=== PATIENT | male | born 1990 | race Caucasian/White ===

== ENCOUNTER 2018-03-01 21:04 | Emergency (ER) | payer SELFPAY ==
[2018-03-01] MEDS ORDERED: NORMAL SALINE 1000 ML 1,000 ML IV ONE ×2 (21:06→23:20)
--- NOTE | 2018-03-01 21:07 | ER Document Report ---
Addendum entered and electronically signed by NGUYỄN FREEMAN DO 03/02/18 09:06 : Course - Vital Signs Vital signs: Temp Pulse Resp BP Pulse Ox 98.4 F 21 H 109/73 98 03/01/18 22:15 03/02/18 06:01 03/02/18 06:01 03/02/18 06:01 - Laboratory Result Diagrams: 03/01/18 21:10 03/01/18 21:10 Laboratory results interpreted by me: 03/01/18 03/01/18 03/01/18 21:10 21:10 21:55 WBC 12.6 H Seg Neutrophils % 79.6 H Lymphocytes % 11.0 L Absolute Neutrophils 10.1 H Sodium 145.6 H Direct Bilirubin 0.8 H Urine Protein 30 H Urine Urobilinogen 2.0 H Salicylates < 1.0 L Acetaminophen < 10 L Addendum entered and electronically signed by OMER MARTIN LPC 03/02/18 08: 46: Discharge - Discharge Clinical Impression: Suicide attempt Overdose Qualifiers: Encounter type: initial encounter Injury intent: intentional self-harm Qualified Code(s): T50.902A - Poisoning by unspecified drugs, medicaments and biological substances, intentional self-harm, initial encounter Anticholinergic drug overdose Qualifiers: Encounter type: initial encounter Injury intent: intentional self-harm Qualified Code(s): T44.3X2A - Poisoning by other parasympatholytics [ anticholinergics and antimuscarinics] and spasmolytics, intentional self-harm, initial encounter Condition: Stable Disposition: HOME, SELF-CARE Instructions: Overdose ([facility]), Overdose / Ingestion ([facility]), Suicidal Ideation ( [facility]) Additional Instructions: OVERDOSE: You have taken more medication than you should have. After your evaluation and care, it is felt that your overdose is not likely to be harmful or of any significant consequences to you and you are being discharged. In the future, you should be careful not to take more medications than what is prescribed for you. Although your overdose does not seem to be of any danger to you at this time, if you develop any unusual or unexpected symptoms after your discharge, you should return to the Emergency Department immediately for re-evaluation. DEPRESSION: Your evaluation reveals that you have mental depression. While symptoms may be vague, they often include disturbance of sleep, fatigue, loss of appetite , and general loss of interest in life. While depression may be a side effect of drugs, or a reaction to a major change in your life, many cases have no known cause. If depression is acute, and related to a major loss in your life, you can expect it to clear completely with time. If you have been depressed a long time , are prone to repeated bouts of depression or low mood, or have been thinking of suicide, get help. Depression can be treated with anti-depressant medication and counselling. Long-term depression will often take a few weeks to clear, even with appropriate medication. Follow-up care is important. SUICIDAL IDEATION: Suicidal ideation is a common medical term for thoughts about suicide, which may be as detailed as a formulated plan, without the suicidal act itself. Although most people who undergo suicidal ideation do not commit suicide, some go on to make suicide attempts. The range of suicidal ideation varies greatly from fleeting to detailed planning, role playing, and unsuccessful attempts. While thoughts about suicide are common, most people do not carry out serious actions to commit suicide. Based upon your evaluation and discussion with you, we do not believe you are currently at risk to act upon your thoughts of suicide. You have agreed to return to the Emergency Department, at any time , if you feel inclined to act upon your suicidal thoughts. FOLLOW-UP CARE: You have been provided the mental health outpatient resource sheet with [facility] Mobile Crisis Management (MCM) contact information for crisis, talk therapy and linkage to other supports. You have been encouraged to utilize local resources for therapy and/or medication management if current stress continues to impair everyday functioning. You are being discharged to mother whom you reside with. Both of you have agreed mother will lock up all medications in the home and if you need anything over-the- counter you will have to ask for it If you experience worsening or a significant change in your symptoms, notify the physician immediately, utilize mobile crisis or return to the Emergency Department at any time for re- evaluation. Referrals: [facility] Team [Outside] - Follow up as needed Original Note: ED Psych Disorder / Suicide <OMER MARTIN - Last Filed: 03/02/18 08:42> <NGUYỄN FREEMAN - Last Filed: 03/02/18 09:06> <ANTWAN LAGOS - Last Filed: 03/02/18 09:11> - General Mode of Arrival: Stretcher Information source: Emergency Med Personnel TRAVEL OUTSIDE OF THE U.S. IN LAST 30 DAYS: No - HPI Patient complains to provider of: Overdose Onset: Just prior to arrival Onset was: Sudden Quality of pain: No pain Suicide Risk Factors: Male Suicide Attempt Method: Overdose <BENNETT CARDENAS - Last Filed: 03/02/18 14:12> - General Stated Complaint: POSSIBLE OVERDOSE Time Seen by Provider: 03/01/18 21:05 - HPI Notes: Patient is a 27-year-old male brought to the emergency room by EMS after apparent overdose, EMS reports that patient had an argument with his mother at which point time he grabbed a bottle of Aleve which had approximately 10-15 pills in it which he ingested all at once, mother denies any knowledge of any other substance ingestion, however patient is quite altered on arrival, patient does have a history of substance abuse prior but has been clean for 2 years, he previously lived in [place] and his mother and sister brought him to [place] in an effort to get him clean, over the past week he has been hanging out with a new female friend who mother is concerned may be a bad influence on him and may have gotten him to start using drugs and/or alcohol again (BENNETT CARDENAS) - Related Data Allergies/Adverse Reactions: ketamine Allergy (Verified 03/23/16 13:07) Past Medical History - General Information source: Patient, Parent, Relative, Emergency Med Personnel - Social History Smoking Status: Unknown if Ever Smoked Family History: Reviewed & Not Pertinent - Immunizations Hx Diphtheria, Pertussis, Tetanus Vaccination: No <BENNETT CARDENAS - Last Filed: 03/02/18 14:12> Review of Systems - Review of Systems -: Yes ROS unobtainable due to patient's medical condition Neurological/Psychological: See HPI <BENNETT CARDENAS - Last Filed: 03/02/18 14:12> Physical Exam - Vital signs Interpretation: Tachycardic - General General appearance: Other - Patient appears intoxicated In distress: Mild - HEENT Head: Normocephalic, Atraumatic Eyes: Normal Conjunctiva: Normal Mucous membranes: Dry Pharynx: Normal Neck: Normal - Respiratory Respiratory status: No respiratory distress Chest status: Nontender Breath sounds: Normal Chest palpation: Normal - Cardiovascular Rhythm: Regular, Tachycardia - Abdominal Inspection: Normal Distension: No distension Bowel sounds: Normal Tenderness: Nontender Organomegaly: No organomegaly - Back Back: Normal, Nontender - Extremities General upper extremity: Normal inspection, Nontender, Normal color, Normal ROM , Normal temperature General lower extremity: Normal inspection, Nontender, Normal color, Normal ROM , Normal temperature, Normal weight bearing. No: Anya's sign - Neurological Cognition: Confused Hurst Coma Scale Eye Opening: Spontaneous Hurst Coma Scale Verbal: Incomprehensible Melissa Coma Scale Motor: Withdraws to Pain Hurst Coma Scale Total: 10 - Psychological Associated symptoms: Other - Bizarre affect - Skin Skin Temperature: Warm Skin Moisture: Dry Skin Color: Normal <BENNETT CARDENAS - Last Filed: 03/02/18 14:12> - Vital signs Vitals: Resp Pulse Ox 18 99 03/01/18 21:06 03/01/18 21:06 Course <OMER MARTIN - Last Filed: 03/02/18 08:42> - Laboratory Result Diagrams: 03/01/18 21:10 03/01/18 21:10 <NGUYỄN FREEMAN - Last Filed: 03/02/18 09:06> - Laboratory Result Diagrams: 03/01/18 21:10 03/01/18 21:10 <ANTWAN LAGOS - Last Filed: 03/02/18 09:11> - Laboratory Result Diagrams: 03/01/18 21:10 03/01/18 21:10 - Diagnostic Test Radiology reviewed: Image reviewed, Reports reviewed - EKG Interpretation by Nc EKG shows normal: Sinus rhythm Rate: Tachycardia <BENNETT CARDENAS - Last Filed: 03/02/18 14:12> - Re-evaluation Re-evalutation: 03/02/18 03:59 Patient reevaluated. He is resting comfortably, alert, awake. He states that he is tired. Current vital signs are heart rate of 91, blood pressure 127/82, he is satting 98% on room air. 03/02/18 04:01 03/02/18 06:29 Patient reevaluated again. He is still resting comfortably. Vital signs within normal limits. No events since sign out. Patient alert, awake. Patient will be removed from trauma [address] 4[address] Patient cleared for psychiatric evaluation. (NGUYỄN FREEMAN) 03/01/18 23:19 Patient more awake and alert, his heart rate is in the 140 range, he now admits that he had an argument with his mother and therefore overdosed on approximately 24 Benadryl, this does seem to fit his symptoms of anticholinergic toxidrome as well as he is tachycardic, dry, and delirious on arrival 03/01/18 23:41 Patient was discussed with [facility] control who recommends patient receive sodium bicarb, 2 Amps, then repeat the EKG to ensure that the QRS is less than 120 03/02/18 00:08 Patient resting comfortably, remains in restraints for safety 03/02/18 00:20 24-hour involuntary commitment paperwork is been completed and placed on the chart Patient will remain in the emergency room for continued monitoring until he can be seen and evaluated by mental health services for further evaluation and treatment 03/02/18 00:53 30 EKG after receiving 2 Amps of bicarb shows a QRS of 111, patient continues to improve, is much more awake alert and cooperative (BENNETT CARDENAS) - Vital Signs Vital signs: Temp Pulse Resp BP Pulse Ox 98.1 F 90 21 H 117/67 99 03/02/18 09:08 03/02/18 09:08 03/02/18 06:01 03/02/18 09:08 03/02/18 09:08 - Laboratory Laboratory results interpreted by me: 03/01/18 03/01/18 03/01/18 21:10 21:10 21:55 WBC 12.6 H Seg Neutrophils % 79.6 H Lymphocytes % 11.0 L Absolute Neutrophils 10.1 H Sodium 145.6 H Direct Bilirubin 0.8 H Urine Protein 30 H Urine Urobilinogen 2.0 H Salicylates < 1.0 L Acetaminophen < 10 L - EKG Interpretation by Me Additional EKG results interpreted by me: 03/02/18 00:09 Initial EKG with a QRS of 119, repeat EKG with a QRS of 125, both sinus tachycardia with no acute findings otherwise (BENNETT CARDENAS) Critical Care Note <OMER MARTIN - Last Filed: 03/02/18 08:42> <NGUYỄN FREEMAN - Last Filed: 03/02/18 09:06> <ANTWAN LAGOS - Last Filed: 03/02/18 09:11> - Critical Care Note Total time excluding time spent on procedures (mins): 60 <BENNETT CARDENAS - Last Filed: 03/02/18 14:12> - Critical Care Note Comments: Patient arrived via EMS after apparent overdose, tachycardic, with anticholinergic toxidrome (BENNETT CARDENAS) Discharge <OMER MARTIN - Last Filed: 03/02/18 08:42> <NGUYỄN FREEMAN - Last Filed: 03/02/18 09:06> <ANTWAN LAGOS - Last Filed: 03/02/18 09:11> <BENNETT CARDENAS - Last Filed: 03/02/18 14:12> - Discharge Clinical Impression: Suicide attempt Overdose Qualifiers: Encounter type: initial encounter Injury intent: intentional self-harm Qualified Code(s): T50.902A - Poisoning by unspecified drugs, medicaments and biological substances, intentional self-harm, initial encounter Anticholinergic drug overdose Qualifiers: Encounter type: initial encounter Injury intent: intentional self-harm Qualified Code(s): T44.3X2A - Poisoning by other parasympatholytics [ anticholinergics and antimuscarinics] and spasmolytics, intentional self-harm, initial encounter Condition: Stable Disposition: HOME, SELF-CARE Instructions: Overdose ([facility]), Overdose / Ingestion ([facility]), Suicidal Ideation ( [facility]) Additional Instructions: OVERDOSE: You have taken more medication than you should have. After your evaluation and care, it is felt that your overdose is not likely to be harmful or of any significant consequences to you and you are being discharged. In the future, you should be careful not to take more medications than what is prescribed for you. Although your overdose does not seem to be of any danger to you at this time, if you develop any unusual or unexpected symptoms after your discharge, you should return to the Emergency Department immediately for re-evaluation. DEPRESSION: Your evaluation reveals that you have mental depression. While symptoms may be vague, they often include disturbance of sleep, fatigue, loss of appetite , and general loss of interest in life. While depression may be a side effect of drugs, or a reaction to a major change in your life, many cases have no known cause. If depression is acute, and related to a major loss in your life, you can expect it to clear completely with time. If you have been depressed a long time , are prone to repeated bouts of depression or low mood, or have been thinking of suicide, get help. Depression can be treated with anti-depressant medication and counselling. Long-term depression will often take a few weeks to clear, even with appropriate medication. Follow-up care is important. SUICIDAL IDEATION: Suicidal ideation is a common medical term for thoughts about suicide, which may be as detailed as a formulated plan, without the suicidal act itself. Although most people who undergo suicidal ideation do not commit suicide, some go on to make suicide attempts. The range of suicidal ideation varies greatly from fleeting to detailed planning, role playing, and unsuccessful attempts. While thoughts about suicide are common, most people do not carry out serious actions to commit suicide. Based upon your evaluation and discussion with you, we do not believe you are currently at risk to act upon your thoughts of suicide. You have agreed to return to the Emergency Department, at any time , if you feel inclined to act upon your suicidal thoughts. FOLLOW-UP CARE: You have been provided the mental health outpatient resource sheet with [facility] Mobile Crisis Management (MCM) contact information for crisis, talk therapy and linkage to other supports. You have been encouraged to utilize local resources for therapy and/or medication management if current stress continues to impair everyday functioning. You are being discharged to mother whom you reside with. Both of you have agreed mother will lock up all medications in the home and if you need anything over-the- counter you will have to ask for it If you experience worsening or a significant change in your symptoms, notify the physician immediately, utilize mobile crisis or return to the Emergency Department at any time for re- evaluation. Referrals: [facility] [Outside] - Follow up as needed
[2018-03-01 21:26] LABS: ABSOLUTE BASOPHILS # (AUTO) 0.1 10^3/uL (0.0-0.2); ABSOLUTE EOSINOPHILS # (AUTO) 0.1 10^3/uL (0.0-0.6); ABSOLUTE LYMPHOCYTES (AUTO) 1.4 10^3/uL (0.5-4.7); ABSOLUTE MONOCYTES (AUTO) 1.1 10^3/uL (0.1-1.4); ABSOLUTE NEUT (AUTO) 10.1 10^3/uL (1.7-8.2); BASOPHILS % (AUTO) 0.4 % (0-2); EOSINOPHILS % (AUTO) 0.6 % (0-6); HEMATOCRIT 45.9 % (37.9-51.0); HEMOGLOBIN 15.8 g/dL (13.5-17.0); MEAN CORPUSCULAR HEMOGLOBIN 31.9 pg (27.0-33.4); MEAN CORPUSCULAR HGB CONC 34.5 g/dL (32.0-36.0); MEAN CORPUSCULAR VOLUME 93 fl (80-97); MONOCYTES % (AUTO) 8.4 % (3-13); PLATELET COUNT 240 10^3/uL (150-450); RED BLOOD COUNT 4.95 10^6/uL (4.35-5.55); RED CELL DISTRIBUTION WIDTH 12.5 % (11.5-14.0); SEGMENTED NEUTROPHILS % (AUTO) 79.6 % (42-78); TOTAL CELLS COUNTED % (AUTO) 100 %; WHITE BLOOD COUNT 12.6 10^3/uL (4.0-10.5)
[2018-03-01 21:43] LABS: ALANINE AMINOTRANSFERASE 47 U/L (21-72); ALBUMIN 4.2 g/dL (3.5-5.0); ALKALINE PHOSPHATASE 78 U/L (38-126); ANION GAP 14 (5-19); ASPARTATE AMINO TRANSFERASE 32 U/L (17-59); BILIRUBIN,DIRECT 0.8 mg/dL (0.0-0.4); BILIRUBIN,TOTAL 0.9 mg/dL (0.2-1.3); BLOOD UREA NITROGEN 12 mg/dL (7-20); CALCIUM 9.7 mg/dL (8.4-10.2); CARBON DIOXIDE 27 mmol/L (22-30); CHLORIDE 105 mmol/L (98-107); GLUCOSE 77 mg/dL (75-110); SODIUM 145.6 mmol/L (137-145); TOTAL PROTEIN 7.3 g/dL (6.3-8.2)
[2018-03-01 21:47] LABS: ACETAMINOPHEN < 10 ug/mL (10-30); ALCOHOL < 10 mg/dL (NONE DETECTED); SALICYLATE < 1.0 mg/dL (2.0-20.0)
[2018-03-01 22:31] LABS: APPEARANCE,URINE SLIGHTLY-CLOUDY; BILIRUBIN,URINE NEGATIVE (NEGATIVE); COLOR,URINE YELLOW; GLUCOSE, URINE NEGATIVE (NEGATIVE); KETONES,URINE NEGATIVE (NEGATIVE); LEUKOCYTE ESTERASE,URINE NEGATIVE (NEGATIVE); NITRITE,URINE NEGATIVE (NEGATIVE); PROTEIN,URINE 30 mg/dL (NEGATIVE)
--- NOTE | 2018-03-01 23:37 | RADIOLOGY REPORT (SQ) ---
EXAM DESCRIPTION: CT HEAD WITHOUT IV CONTRAST COMPLETED DATE/TME: 03/01/2018 21:05 CLINICAL HISTORY: 27 years, Male, ams COMPARISON: None. TECHNIQUE: 200 Images stored on PACS. All CT scanners at this facility use dose modulation, iterative reconstruction, and/or weight based dosing when appropriate to reduce radiation dose to as low as reasonably achievable (ALARA). [facility]: Dose Right [facility]: CareDose [facility]: Dose Right [facility]: Teradose 4D [facility]: [employer] LIMITATIONS: None. FINDINGS: The globes are intact. The paranasal sinuses and mastoid air cells are unremarkable. No displaced or depressed skull fracture. No intra or extra-axial hemorrhage. CT is limited for evaluation of acute infarct. No CT evidence for large or territorial acute infarct. No mass or midline shift. IMPRESSION: Negative exam TECHNICAL DOCUMENTATION: Quality ID # [id number]: Final reports with documentation of one or more dose reduction techniques (e.g., Automated exposure control, adjustment of the mA and/or kV according to patient size, use of iterative reconstruction technique) 2010 [employer]- All Rights Reserved
[2018-03-01] MEDS ORDERED: SODIUM BICARBONATE 8.4% INJ 50 MEQ/50 ML DISP.SYRIN IV ONE (23:40)
[2018-03-02] MEDS ORDERED: SODIUM BICARBONATE 4.2% INJ 5 MEQ/10 ML DISP.SYRIN IV ONE (00:25)
[2018-03-02 01:02] LABS: URINE AMPHETAMINES SCREEN NEGATIVE; URINE BARBITURATES SCREEN NEGATIVE; URINE BENZODIAZEPINES SCREEN NEGATIVE; URINE COCAINE SCREEN NEGATIVE; URINE MARIJUANA (THC) SCREEN NEGATIVE; URINE METHADONE SCREEN NEGATIVE; URINE PHENCYCLIDINE SCREEN NEGATIVE
--- NOTE | 2018-03-02 07:55 | EKG REPORT ---
SEVERITY:- ABNORMAL ECG - SINUS RHYTHM LEFT POSTERIOR FASCICULAR BLOCK PROLONGED QT INTERVAL : Confirmed by: Jamin Ramirez MD 02-Mar-2018 07:54:39
--- NOTE | 2018-03-02 07:55 | EKG REPORT ---
SEVERITY:- ABNORMAL ECG - SINUS TACHYCARDIA LEFT POSTERIOR FASCICULAR BLOCK BORDERLINE PROLONGED QT INTERVAL : Confirmed by: Jamin Ramirez MD 02-Mar-2018 07:54:49
--- NOTE | 2018-03-02 07:55 | EKG REPORT ---
SEVERITY:- ABNORMAL ECG - SINUS TACHYCARDIA LEFT POSTERIOR FASCICULAR BLOCK BORDERLINE PROLONGED QT INTERVAL : Confirmed by: Jamin Ramirez MD 02-Mar-2018 07:55:05
--- NOTE | 2018-03-02 08:41 | PSYCHOLOGICAL NOTE ---
Psych Note - Psych Note Date seen by psych provider: 03/02/18 Time seen by psych provider: 07:15 - Chart review at 0718. Evaluation from 5133- 1120 Psych Note: Reason for Consult: 24 Hour IVC Petition, OD Contact Permissions: Mother Shae, Neighbor Bel both at bedside Patient is a 27 year old male who presented to the ED via EMS last evening for an intentional OD of Aleve after and argument with mother. He stated he was in the ED for "a bunch of stupid crap really, I was hanging out with a female friend for a couple hours like I normally do but my mother thought we were messing around so she threw my belongings outside, I got mad and took those things and then don't remember much else." He admitted he took "3 Aleve and 14- 15 Benadryl, this was the first time for anything like this, it will be the last time, it is not worth it, I will never do this again it is so bad." He denied current SI and commented "hell no, I'm done with that, stupid experiment. " He denied previous MH history to include both outpatient and inpatient. He stated he is often "shaky and think I have a little anxiety." Patient was alert and oriented to person, place, time and situation. Mood was euthymic with congruent affect. He denied current SI/HI, history of attempts ( he and mother denied), admitted to taking Aleve and Benadryl but it was stupid and said he would not do that again. He did not appear to be responding to internal stimuli as evidenced by fair eye contact, answering questions appropriately when addressed, carrying on dialogue conversation, staying on topic and being engaged in evaluation. Thought processes were linear and organized. Conversational speech was within normal limits for rate, tone and prosody. Intellectual abilities are estimated to be average. Insight, judgment and impulse control were fair as evidenced by being engaged in evaluation, processing crisis and being honest about his actions. 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 She reported 03/17/18 will be 2 years of sobriety for patient. She acknowledged patient takes Benadryl for sleep "so is not certain taking the medications was entirely on purpose to harm self." She denied a family history of MH. She confirmed no MH history with patient to include inpatient hospitalizations. She reported she felt comfortable with patient going home, she would observe/ monitor more closely the next few days and she would lock up all medications in the home (patient won't have access and would need to ask for anything needed to include Benadryl that he uses for sleep). Diagnosis: 308.3 (F43.0) Acute Stress Disorder Impression/Plan: Patient is cleared from acute psychiatric services. Recommendation to rescind 24 Hour IVC Petition. He denied current SI/HI, both he and mother reported no history of previous attempts or any MH with exception of SA (Suboxone, will be sober 2 years on 01/15/18) and no observed psychosis. Mother and patient have agreed mother will lock up all medications in the home and he will have to ask for anything he might need that is O-T-C. Patient will go home with mother, who he resides with. Mother and neighbor present (natural supports). Patient and mother provided psychoeducation regarding [facility] for crisis, talk therapy and linkage to other supports. Provided outpatient resource sheet to patient with [facility] number highlighted. Encouraged therapy or medication management at local agency if stress impairs everyday functioning. Consulted with Dr. Rosenthal regarding the management and care of patient. ED Physician in agreement with recommendations.
[2018-03-02 09:10] VITALS: BP 117/67
--- NOTE | 2018-03-02 09:17 | ER Document Report ---
Doctor's Note Notes: 03/02/18 09:16 Rounds: Chart reviewed and patient interviewed. Patient being evaluated for a benign overdose. Argument with mother. Depression. Vital signs are all normal. Lab studies were all normal with exception of very minimally elevated WBC. No other signs of any infection anywhere. Patient appears to be medically stable for transfer or discharge. Gui Solomon MD
== END 2018-03-02 09:24 | disposition home or self-care (01) ==
LOC: ER 21:04
DX: T45.0X2A Poisoning by antiallergic and antiemetic drugs, intentional self-harm, initial encounter (principal); T44.3X2A Poisoning by other parasympatholytics [anticholinergics and antimuscarinics] and spasmolytics, intentional self-harm, initial encounter; Y92.009 Unspecified place in unspecified non-institutional (private) residence as the place of occurrence of the external cause; R00.0 Tachycardia, unspecified; D72.829 Elevated white blood cell count, unspecified; F43.0 Acute stress reaction; Z88.8 Allergy status to other drugs, medicaments and biological substances; Z78.1 Physical restraint status
CPT/HCPCS: 93005 ×2; 99285; 96360; 96361; 36415; 80307 ×4; 82550; 85025; 80053; 81001; 70450; 93010 ×2; J3490; J7030

== ENCOUNTER 2018-07-18 13:53 | Emergency (ER) | payer SELFPAY ==
--- NOTE | 2018-07-18 14:19 | ER Document Report ---
ED Medical Screen (RME) - General Chief Complaint: Syncope Stated Complaint: POSSIBLE SEIZURE Time Seen by Provider: 07/18/18 14:13 Mode of Arrival: Ambulatory Information source: Patient Notes: Patient is a 27-year-old male who presents to the emergency department after suffering a seizure yesterday while at work. Patient reports he has never had a seizure in the past. States he had a seizure while at work, states someone caught him and guided him to the ground. States EMS was called, checked his vitals and patient declined transport. Patient now states he is continuing to have dizziness, weakness and feels like he may pass out. He states that he smokes weed occasionally, denies any recent history of IV drug use although he does state he used IV drugs last to 3 years ago. Patient denies any recent fevers, nausea, vomiting or diarrhea. Exam: Patient alert, oriented, calm and cooperative. Equal childcare provider strength bilaterally. I have greeted and performed a rapid initial assessment of this patient. A comprehensive ED assessment and evaluation of the patient, analysis of test results and completion of the medical decision making process will be conducted by additional ED providers. Dictation of this chart was performed using voice recognition software; therefore, there may be some unintended grammatical errors. TRAVEL OUTSIDE OF THE [place] IN LAST 30 DAYS: No - Related Data Allergies/Adverse Reactions: codeine Allergy (Verified 07/18/18 14:12) Past Medical History Renal/ Medical History: Denies: Hx Peritoneal Dialysis - Immunizations Hx Diphtheria, Pertussis, Tetanus Vaccination: No Physical Exam - Vital signs Vitals: Temp Pulse Resp BP Pulse Ox 98.1 F 88 18 105/68 98 07/18/18 14:03 07/18/18 14:03 07/18/18 14:03 07/18/18 14:03 07/18/18 14:03 Course - Vital Signs Vital signs: Temp Pulse Resp BP Pulse Ox 98.1 F 88 18 105/68 98 07/18/18 14:03 07/18/18 14:03 07/18/18 14:03 07/18/18 14:03 07/18/18 14:03
[2018-07-18 15:08] LABS: AMORPHOUS SEDIMENT,URINE TRACE /HPF; APPEARANCE,URINE CLOUDY; BILIRUBIN,URINE NEGATIVE (NEGATIVE); COLOR,URINE YELLOW; GLUCOSE, URINE NEGATIVE (NEGATIVE); KETONES,URINE NEGATIVE (NEGATIVE); LEUKOCYTE ESTERASE,URINE NEGATIVE (NEGATIVE); NITRITE,URINE NEGATIVE (NEGATIVE); PROTEIN,URINE 30 mg/dL (NEGATIVE); URINE SPECIFIC GRAVITY 1.021; UROBILINOGEN,URINE NEGATIVE mg/dL (<2.0)
[2018-07-18 15:08] LABS: ABSOLUTE BASOPHILS # (AUTO) 0.1 10^3/uL (0.0-0.2); ABSOLUTE EOSINOPHILS # (AUTO) 0.1 10^3/uL (0.0-0.6); ABSOLUTE LYMPHOCYTES (AUTO) 2.1 10^3/uL (0.5-4.7); ABSOLUTE MONOCYTES (AUTO) 0.6 10^3/uL (0.1-1.4); ABSOLUTE NEUT (AUTO) 4.8 10^3/uL (1.7-8.2); EOSINOPHILS % (AUTO) 0.9 % (0-6); HEMATOCRIT 45.7 % (37.9-51.0); HEMOGLOBIN 16.1 g/dL (13.5-17.0); LYMPHOCYTES % (AUTO) 27.1 % (13-45); MEAN CORPUSCULAR HEMOGLOBIN 31.2 pg (27.0-33.4); MEAN CORPUSCULAR HGB CONC 35.2 g/dL (32.0-36.0); MEAN CORPUSCULAR VOLUME 89 fl (80-97); MONOCYTES % (AUTO) 8.2 % (3-13); PLATELET COUNT 283 10^3/uL (150-450); RED BLOOD COUNT 5.14 10^6/uL (4.35-5.55); RED CELL DISTRIBUTION WIDTH 12.3 % (11.5-14.0); SEGMENTED NEUTROPHILS % (AUTO) 62.8 % (42-78); TOTAL CELLS COUNTED % (AUTO) 100 %; WHITE BLOOD COUNT 7.6 10^3/uL (4.0-10.5)
--- NOTE | 2018-07-18 15:14 | RADIOLOGY REPORT (SQ) ---
EXAM DESCRIPTION: CT HEAD WITHOUT COMPLETED DATE/TIME: 07/18/2018 3:01 pm REASON FOR STUDY: NEW ONSET SEIZURES COMPARISON: CT head 03/01/2018. TECHNIQUE: Axial images acquired through the brain without intravenous contrast. Images reviewed wi th bone, brain and subdural windows. Images stored on PACS. All CT scanners at this facility use dose modulation, iterative reconstruction, and/or weight based d osing when appropriate to reduce radiation dose to as low as reasonably achievable (ALARA). [facility]: Dose Right [facility]: CareDose [facility]: Dose Right [facility]: Teradose 4D [facility]: Smart [employer] RADIATION DOSE: CT Rad equipment meets quality standard of care and radiation dose reduction techniq ues were employed. CTDIvol: 53.2 mGy. DLP: 1070 mGy-cm. mGy. LIMITATIONS: None. FINDINGS: VENTRICLES: Normal size and contour. CEREBRUM: No mass effect. No hemorrhage. No midline shift. Normal maynard/white matter differentiatio n. No evidence for acute territorial infarction. CEREBELLUM: No mass effect. No hemorrhage. No alteration of density. No evidence for acute infarct ion. EXTRAAXIAL SPACES: No fluid collections. ORBITS AND GLOBE: Symmetrical contour of the globes. CALVARIUM: No depressed skull fracture. PARANASAL SINUSES: No air-fluid level. SOFT TISSUES: No hematoma. IMPRESSION: NO ACUTE INTRACRANIAL IMAGING FINDINGS. EVIDENCE OF ACUTE STROKE: NO. COMMENT: Quality ID # [id number]: Final reports with documentation of one or more dose reduction techniques (e.g., Automated exposure control, adjustment of the mA and/or kV according to patient size, use of iterative reconstruction technique) TECHNICAL DOCUMENTATION: JOB ID: [id number] 2010 [employer]- All Rights Reserved Reading location - IP/workstation name: [email or web address]
[2018-07-18 15:28] LABS: URINE AMPHETAMINES SCREEN NEGATIVE; URINE BARBITURATES SCREEN NEGATIVE; URINE BENZODIAZEPINES SCREEN NEGATIVE; URINE COCAINE SCREEN NEGATIVE; URINE MARIJUANA (THC) SCREEN UNCONFIRMED POSITIVE; URINE METHADONE SCREEN NEGATIVE; URINE PHENCYCLIDINE SCREEN NEGATIVE
[2018-07-18 16:15] LABS: ALANINE AMINOTRANSFERASE 56 U/L (21-72); ALBUMIN 4.4 g/dL (3.5-5.0); ALKALINE PHOSPHATASE 75 U/L (38-126); ANION GAP 6 (5-19); ASPARTATE AMINO TRANSFERASE 29 U/L (17-59); BILIRUBIN,DIRECT 0.4 mg/dL (0.0-0.4); BILIRUBIN,TOTAL 0.6 mg/dL (0.2-1.3); BLOOD UREA NITROGEN 10 mg/dL (7-20); CALCIUM 9.9 mg/dL (8.4-10.2); CARBON DIOXIDE 29 mmol/L (22-30); CHLORIDE 102 mmol/L (98-107); GLUCOSE 93 mg/dL (75-110); POTASSIUM 4.3 mmol/L (3.6-5.0); SODIUM 137.1 mmol/L (137-145); TOTAL PROTEIN 7.5 g/dL (6.3-8.2)
[2018-07-18 16:19] LABS: ALCOHOL < 10 mg/dL (NONE DETECTED)
[2018-07-18] MEDS ORDERED: NORMAL SALINE 1000 ML 1,000 ML IV ONE (16:35)
--- NOTE | 2018-07-18 16:35 | ER Document Report ---
ED Syncope and Near Syncope - General Chief Complaint: Syncope Stated Complaint: POSSIBLE SEIZURE Time Seen by Provider: 07/18/18 14:13 Mode of Arrival: Ambulatory Information source: Patient Notes: Patient is a 27-year-old male with no past medical history on no medications who smokes marijuana regularly who presents today with a syncopal-like episode while working at [employer]. 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 Patient states he then "passed out" and was caught by his coworker. Patient states he remembers the entire event. No incontinence. Possibility of a seizure witnessed by a friend? Patient denies this. Patient denies any pain such as headache, neck pain, chest pain, shortness of breath, abdominal pain, weakness or numbness. He had no incontinence. He states that he feels "completely fine" now. TRAVEL OUTSIDE OF THE [place] IN LAST 30 DAYS: No - Related Data Allergies/Adverse Reactions: codeine Allergy (Verified 07/18/18 14:12) Past Medical History - General Information source: Patient - Social History Smoking Status: Current Every Day Smoker Frequency of alcohol use: None Drug Abuse: Marijuana Family History: Reviewed & Not Pertinent Patient has suicidal ideation: No Patient has homicidal ideation: No Renal/ Medical History: Denies: Hx Peritoneal Dialysis - Immunizations Hx Diphtheria, Pertussis, Tetanus Vaccination: No Review of Systems - Review of Systems Constitutional: denies: Fever EENT: denies: Eye discharge, Nose discharge Cardiovascular: denies: Chest pain, Palpitations Respiratory: denies: Short of breath Gastrointestinal: denies: Vomiting Genitourinary: denies: Dysuria Musculoskeletal: denies: Leg swelling Skin: Other - no hives. denies: Rash Neurological/Psychological: Other - no slurred speech -: Yes All other systems reviewed and negative Physical Exam - Vital signs Vitals: Temp Pulse Resp BP Pulse Ox 98.1 F 88 18 105/68 98 07/18/18 14:03 07/18/18 14:03 07/18/18 14:03 07/18/18 14:03 07/18/18 14:03 Notes: Reviewed vital signs and nursing note as charted by RN. CONSTITUTIONAL: Alert and oriented and responds appropriately to questions. Well-appearing; well-nourished HEAD: Normocephalic; atraumatic EYES: PERRL; Conjunctivae clear, sclerae non-icteric ENT: Normal nose; no rhinorrhea; moist mucous membranes; pharynx without lesions noted NECK: Supple without meningismus; non-tender; no cervical lymphadenopathy, no masses CARD: Regular rate and rhythm; no murmurs; symmetric distal pulses RESP: Normal chest excursion without splinting or tachypnea; breath sounds clear and equal bilaterally; no wheezes, no rhonchi, no rales ABD/GI: Normal bowel sounds; non-distended; soft, non-tender; no palpable organomegaly or masses EXT: Normal ROM in all joints; non-tender to palpation; no edema SKIN: No acute lesions noted NEURO: CN 2-12 intact; 5/5 bilateral upper and lower extremity strength with sensation intact to light touch PSYCH: The patient's mood and manner are appropriate. Grooming and personal hygiene are appropriate. Course - Re-evaluation Re-evalutation: Given the above history and physical examination, labs, EKG, CT scan of the head , and fluids were ordered in triage. Patient currently has no focal neurological deficits and has no pain. I do believe an acute cardiac event, pulmonary embolism, subarachnoid hemorrhage, all to be extremely unlikely at this time. 07/18/18 16:32 CT imaging and labs as recorded. Patient still has no focal neurological deficits or pain. Fluids have been given. Orthostatics are pending. EKG shows a heart rate of 80, normal sinus rhythm, normal axis, J-point elevation, no ST elevation or depression. Given the above history and physical with lab and CT imaging as recorded, I do not believe any further imaging or laboratory work is necessary. Patient will be discharged home with strict return precautions and follow-up with the primary care physician. - Vital Signs Vital signs: Temp Pulse Resp BP Pulse Ox 98.1 F 88 18 105/68 98 07/18/18 14:03 07/18/18 14:03 07/18/18 14:03 07/18/18 14:03 07/18/18 14:03 - Laboratory Result Diagrams: 07/18/18 14:45 07/18/18 15:31 Laboratory results interpreted by me: 07/18/18 14:21 Urine Protein 30 H Discharge - Discharge Clinical Impression: Syncope and collapse Condition: Good Disposition: HOME, SELF-CARE Additional Instructions: Come back immediately for any repeat episodes, chest pain, shortness of breath, leg swelling, weakness or numbness, or any other acute problems. Please follow- up with your primary care physician as we have discussed. Please make sure that you eat and stay well-hydrated.
[2018-07-18 18:09] VITALS: BP 111/73
--- NOTE | 2018-07-18 23:42 | EKG REPORT ---
SEVERITY:- OTHERWISE NORMAL ECG - SINUS RHYTHM BORDERLINE RIGHT AXIS DEVIATION ST ELEV, PROBABLE NORMAL EARLY REPOL PATTERN : Confirmed by: Jeni Stauffer 18-Jul-2018 23:41:22
== END 2018-07-18 18:08 | disposition home or self-care (01) ==
LOC: ER 13:53
DX: R55 Syncope and collapse (principal); F17.200 Nicotine dependence, unspecified, uncomplicated; F12.10 Cannabis abuse, uncomplicated
CPT/HCPCS: 93005; 99284; 36415; 82962; 80307 ×2; 83735; 85025; 80053; 81001; 70450; 93010; J7030; 96360